=== PATIENT | male | born 1985 | race Caucasian/White ===

== ENCOUNTER → 2017-03-04 | Outpatient (CLI) | payer OTHER | LOC: KOH-I 11:27 | DX: M79.641 Pain in right hand (principal); S62.314A Displaced fracture of base of fourth metacarpal bone, right hand, initial encounter for closed fracture | CPT/HCPCS: 73130 ==

== ENCOUNTER → 2020-09-29 | Outpatient (CLI) | payer OTHER | LOC: KOH-I 11:26 | DX: M51.86 Other intervertebral disc disorders, lumbar region (principal); M47.816 Spondylosis without myelopathy or radiculopathy, lumbar region; M48.061 Spinal stenosis, lumbar region without neurogenic claudication; M51.27 Other intervertebral disc displacement, lumbosacral region; M48.07 Spinal stenosis, lumbosacral region | CPT/HCPCS: 72131 ==

== ENCOUNTER 2021-07-01 14:46 | Inpatient (IN) | payer OTHER ==
[~2021-07-01] VITALS: Ht 177.8 cm; Wt 108.9 kg
[2021-07-01 15:38] LABS: HEMOGLOBIN 16.2 gm/dl (14.0-17.5); RED BLOOD COUNT 5.44 M/UL (4.20-5.50); WHITE BLOOD COUNT 4.2 K/UL (4.5-11.0)
[2021-07-01 15:59] LABS: BUN/CREATININE RATIO 15 (0-10)
[2021-07-01] MEDS ORDERED: PROTONIX40 MG PO (23:20)
[2021-07-01] MEDS ORDERED: ZESTRIL20 MG PO (23:22)
[2021-07-02 08:55] LABS: RED BLOOD COUNT 5.06 M/UL (4.20-5.50); WHITE BLOOD COUNT 5.8 K/UL (4.5-11.0)
[2021-07-02 09:37] LABS: BUN/CREATININE RATIO 16 (0-10)
[2021-07-03 06:24] LABS: HEMOGLOBIN 14.7 gm/dl (14.0-17.5); WHITE BLOOD COUNT 5.8 K/UL (4.5-11.0)
[2021-07-03 06:54] LABS: BUN/CREATININE RATIO 21 (0-10)
[2021-07-03] MEDS ORDERED: DECADRON6 MG PO (12:00)
[2021-07-03] MEDS ORDERED: LEVOFLOXACIN750 MG PO (12:00)
== END 2021-07-03 14:09 | disposition home or self-care (01) | DRG 177 ==
LOC: ER1 14:46 → CDU 16:18 → M/S 17:55
PROVIDERS: Emergency Medicine; ADMIT Internal Medicine
PROC: XW033E5 Introduction of Remdesivir Anti-infective into Peripheral Vein, Percutaneous Approach, New Technology Group 5 (ICD-10-PCS; principal; 2021-07-01)
PROC: 3E0333Z Introduction of Anti-inflammatory into Peripheral Vein, Percutaneous Approach (ICD-10-PCS; 2021-07-01)
PROC: 8E0ZXY6 Isolation (ICD-10-PCS; 2021-07-01)
DX: U07.1 COVID-19 (principal); J12.82 Pneumonia due to coronavirus disease 2019; J96.01 Acute respiratory failure with hypoxia; D61.818 Other pancytopenia; I10 Essential (primary) hypertension; E87.6 Hypokalemia; Z90.89 Acquired absence of other organs
CPT/HCPCS: 36415; 36600; 71045; 80048; 80053; 82550; 82553; 82803; 83605; 83690; 83735; 84484; 85025; 85027; 85379; 86140; 87040; 93005; 96374; 99285; J1100; J1650; J1956; J7030; Q9967; U0002

== ENCOUNTER → 2021-07-13 | Outpatient (CLI) | payer OTHER ==
[~2021-07-13] MED LIST: DECADRON6 MG PO; LEVOFLOXACIN750 MG PO; PROTONIX40 MG PO; ZESTRIL20 MG PO
== END ==
LOC: MRI 06-26 09:00 → EMI 06-28 15:00 → MRI 07-07 11:00
DX: M54.17 Radiculopathy, lumbosacral region (principal); M48.061 Spinal stenosis, lumbar region without neurogenic claudication
CPT/HCPCS: 36415; 72158; 82565; A9577

== ENCOUNTER → 2021-08-09 | Outpatient (CLI) | payer OTHER | LOC: KOH-I 14:56 | DX: M54.17 Radiculopathy, lumbosacral region (principal) | CPT/HCPCS: 72100 ==